=== PATIENT | male | born 1995 | race Hispanic/Latino ===

== ENCOUNTER 2022-06-10 19:52 | Emergency (ER) | payer SELFPAY ==
[2022-06-10] MEDS ORDERED: Metoclopramide HCl 10 MG/2 ML VIAL ONE (20:40)
[2022-06-10] MEDS ORDERED: Ketorolac Tromethamine 30 MG/ML VIAL ONE (20:40)
== END 2022-06-10 21:53 | disposition home or self-care (01) ==
LOC: BURERS 19:52
DX: J11.1 Influenza due to unidentified influenza virus with other respiratory manifestations (principal); Z20.822 Contact with and (suspected) exposure to COVID-19
CPT/HCPCS: 71045; 87804; 96372; J1885; J2765; U0003; U0005